=== PATIENT | female | born 1950 | race Hispanic/Latino ===

== ENCOUNTER → 2017-08-19 | Outpatient (CLI) | payer OTHER, MEDICARE | END | disposition home or self-care (01) | LOC: OIH 14:59 | PROVIDERS: ATTEND Family Medicine | DX: M51.36 Other intervertebral disc degeneration, lumbar region (principal); M47.897 Other spondylosis, lumbosacral region; I10 Essential (primary) hypertension | CPT/HCPCS: 71046; 72100 ==

== ENCOUNTER → 2019-03-31 | Outpatient (CLI) | payer OTHER, MEDICARE ==
[~2019-03-31] MED LIST: DEXAMETHASONE SOD PHOSPHATE 10MG/ML 1ML VIAL ONE; FENTANYL CITRATE PF 50 MCG/1 ML 2ML VIAL ONE; GLYCOPYRROLATE 1 MG/5 ML SYRINGE ONE; LIDOCAINE PF 2% 5ML ABBOJECT ONE; MIDAZOLAM HCL 1 MG/ML 2ML VIAL ONE; NEOSTIGMINE 5MG/5ML SYR IV ONE; ONDANSETRON HCL 4 MG/2 ML VIAL ONE; PROPOFOL 10 MG/ML 20ML VIAL IV ONE; ROCURONIUM 10MG/1ML SYR 10 MG/ML ML ONE
== END | disposition home or self-care (01) ==
LOC: OIH 11:34
PROVIDERS: ATTEND Family Medicine
DX: M17.12 Unilateral primary osteoarthritis, left knee (principal); M16.0 Bilateral primary osteoarthritis of hip
CPT/HCPCS: 73502; 73560

== ENCOUNTER → 2019-04-03 | Outpatient (CLI) | payer OTHER, MEDICARE | END | disposition home or self-care (01) | LOC: OIH 15:13 | PROVIDERS: ATTEND Family Medicine | DX: M17.11 Unilateral primary osteoarthritis, right knee (principal); R05 Cough; I50.9 Heart failure, unspecified; I11.0 Hypertensive heart disease with heart failure | CPT/HCPCS: 71046; 73562 ==